=== PATIENT | female | born 1995 | race Caucasian/White ===

== ENCOUNTER 2018-10-18 03:29 | Emergency (ER) | payer BC ==
--- NOTE | 2018-10-18 04:13 | ED ---
Head Injury - HPI Summary HPI Summary: This patient is a 22 year old female presenting to [facility] with a chief complaint of head injury following fall since 2 hours ago. Patient states that she tripped over her dog and fell headfirst onto the floor. Patient states that she whacked her head on the floor and hit her left hard. Patient denies LOC, but states that she could not see anything for about 20 minutes. In ED, patient has no visual problems. The pain is rated 7/10 in severity. Symptoms aggravated by nothing. Symptoms alleviated by nothing. Patient additionally reports left hand pain, left hand numbness/tingling, head contusion. - History Of Current Complaint Chief Complaint: EDExtremityUpper Stated Complaint: "FALL/HAND AND WRIST PAIN" PER PT Time Seen by Provider: 10/18/18 04:00 Hx Obtained From: Patient Mechanism Of Injury: Blunt Trauma, Fall From A Standing Position Onset/Duration: Started Hours Ago, Still Present Onset of Pain: Immediate Severity Currently: Mild Pain Intensity: 7 Pain Scale Used: 0-10 Numeric Location of Head Injury: Frontal Location: Discrete At: Associated Signs And Symptoms: Other: - left hand pain, left hand numbness/ tingling, head contusion - Allergies/Home Medications Allergies/Adverse Reactions: Allergies Allergy/AdvReac Type Severity Reaction Status Date / Time No Known Allergies Allergy Verified 10/18/18 03:42 PMH/Surg Hx/FS Hx/Imm Hx Previously Healthy: Yes Opthamlomology History: Denies: Hx Legally Blind EENT History: Denies: Hx Deafness Infectious Disease History: No Infectious Disease History: Denies: Traveled Outside the [place] in Last 30 Days - Social History Lives: With Family Alcohol Use: None Hx Substance Use: No Substance Use Type: Reports: None Hx Tobacco Use: No Smoking Status (MU): Never Smoked Tobacco Review of Systems Negative: Fever Positive: Other - temporary loss of vision Positive: Other - left hand pain, left hand numbness/tingling, head contusion All Other Systems Reviewed And Are Negative: Yes Physical Exam - Summary Physical Exam Summary: Appearance: Well-appearing, Well-nourished, lying in bed comfortably Skin: Warm, dry, no obvious rash. small hematoma on left frontal skull with associated abrasion Eyes: sclera anicteric, no conjunctival pallor ENT: mucous membranes moist, pharynx appears normal Neck: Supple, nontender Respiratory: Clear to auscultation, no signs of respiratory distress Cardiovascular: Normal S1, S2. No murmurs. Normal distal pulses in tibial and radial bilaterally. Abdomen: Soft, nontender, normal active bowel sounds present Musculoskeletal: bruising and tenderness over first metacarpal, thenar eminence. Neurological: A&Ox3, awake and alert, mentation is normal, speech is fluent and appropriate Psychiatric: affect is normal, does not appear anxious or depressed Triage Information Reviewed: Yes Vital Signs On Initial Exam: Initial Vitals Temp Pulse Resp BP Pulse Ox 98.3 F 95 16 126/85 97 10/18/18 03:38 10/18/18 03:38 10/18/18 03:38 10/18/18 03:38 10/18/18 03:38 Vital Signs Reviewed: Yes Procedures - Splinting Left Thumb Location: left thumb Hand-Made Type: orthoglass Splint: thumb spica Pre-Proc Neuro Vasc Exam: normal Post-Proc Neuro Vasc Exam: normal Diagnostics - Vital Signs Vital Signs Temp Pulse Resp BP Pulse Ox 10/18/18 03:38 98.3 F 95 16 126/85 97 - Laboratory Lab Statement: Any lab studies that have been ordered have been reviewed, and results considered in the medical decision making process. - Radiology Hand XR Radiology Interpretation Completed By: ED Physician Summary of Radiographic Findings: Hand XR reveals, per ED physician, no acute process. Pending official report. Head Injury Course/Dx Course Of Treatment: This patient is a 22 year old female presenting to [facility] with a chief complaint of head injury following fall since 2 hours ago. Patient states that she tripped over her dog and fell headfirst onto the floor. Patient states that she whacked her head on the floor and hit her left hard. Patient denies LOC, but states that she could not see anything for about 20 minutes. In ED, patient has no visual problems. Hand XR reveals, per ED physician, no acute process. Pending official report. Patient will be discharged with a dx of concussion, contusion. Patient is advised to follow up with PCP in 3 days. The patient is agreeable with this plan. - Diagnoses Provider Diagnoses: Contusion, Concussion Discharge - Sign-Out/Discharge Documenting (check all that apply): Patient Departure Patient Received Moderate/Deep Sedation with Procedure: No - Discharge Plan Condition: Good Disposition: HOME Patient Education Materials: Concussion (ED), Contusion in Adults (ED) Referrals: Panchito Conrad MD [Medical Doctor] - 1 Week (if not improving) - Billing Disposition and Condition Condition: GOOD Disposition: Home - Attestation Statements Document Initiated by Scribe: Yes Documenting Scribe: Deonte Quick Provider For Whom Scribe is Documenting (Include Credential): Silver Rodriguez MD Scribe Attestation: Deonte Mcgee, kassied for Silver Rodriguez MD on 10/18/18 at 0631. Scribe Documentation Reviewed: Yes Provider Attestation: The documentation as recorded by the Deonte bradshaw accurately reflects the service I personally performed and the decisions made by me, Silver Rodriguez MD Status of Scribe Document: Viewed
[2018-10-18 05:00] VITALS: BP 129/74
== END 2018-10-18 04:59 | disposition home or self-care (01) ==
LOC: ED 03:29
DX: S06.0X0A Concussion without loss of consciousness, initial encounter (principal); S00.93XA Contusion of unspecified part of head, initial encounter; W01.0XXA Fall on same level from slipping, tripping and stumbling without subsequent striking against object, initial encounter; M79.645 Pain in left finger(s)
CPT/HCPCS: 29130; 99282